=== PATIENT | female | born 1935 | race Caucasian/White ===

== ENCOUNTER 2019-10-22 14:16 | Outpatient (CLI) | payer MEDICARE ==
--- NOTE | 2019-10-22 15:00 | ULT ---
Exam: Bilateral renal ultrasound HISTORY: Renal cyst COMPARISON: 12/13/2010 FINDINGS: Right kidney: Normal cortical echotexture. No hydronephrosis. Right kidney measurements: 5.3 x 3.6 x 8.6 cm. Left kidney: Normal cortical echotexture. No hydronephrosis Left kidney measurements 9.2 x 5.1 x 3.9 cm. Urinary bladder: Normal mucosa. Prevoid volume 218 mL IMPRESSION: No hydronephrosis.
== END 2019-10-22 14:17 | disposition home or self-care (01) ==
LOC: BICULT 14:16
PROVIDERS: ATTEND Urology
DX: N28.1 Cyst of kidney, acquired (principal)
CPT/HCPCS: 76770

== ENCOUNTER 2021-01-11 05:09 | Inpatient (IN) | payer MEDICARE ==
[2021-01-11 05:40] LABS: #Basophils 0.1 thou/uL (0.0-0.2); #Eosinphils 0.2 thou/uL (0.0-0.7); #Lymphocytes 2.5 thou/uL (1.20-3.40); #Monocytes 0.6 thou/uL (0.11-0.59); #Neutrophils 4.3 thou/uL (1.40-6.50); %Basophils 1.1 % (0.0-1.0); %Eosinophils 2.2 % (0.0-10.0); %Lymphocytes 33.2 % (21.0-51.0); %Monocytes 7.7 % (0.0-10.0); %Neutrophils 55.7 % (42.0-75.0); Hemoglobin 15.1 g/dL (12.0-16.0); Mean Corpuscular HGB CONC 31.5 g/dL (32.0-36.0); Mean Corpuscular Hemoglobin 29.8 pg (27.0-31.0); Mean Corpuscular Volume 94.6 fL (78.0-98.0); Mean Platelet Volume 9.4 fL (7.4-10.4); Platelet Count 144 thou/uL (130-400); RBC Distribution Width 12.6 % (11.5-14.5); Red Blood Cell (RBC) Count 5.08 mill/uL (4.20-5.40); White Blood Cell (WBC) Count 7.6 thou/uL (4.8-10.8)
[2021-01-11 05:51] LABS: ALT (SGPT) 11 U/L (8-55); AST (SGOT) 16 U/L (5-34); Albumin 3.7 g/dL (3.4-4.8); Alkaline Phosphatase 42 U/L (40-110); Anion Gap 11 mmol/L (10-20); BUN (Urea Nitrogen) 14 mg/dL (9.8-20.1); Bilirubin, Total 0.9 mg/dL (0.2-1.2); Calc. Creatinine Clearance 0 mL/min (70-130); Calcium 8.9 mg/dL (7.8-10.44); Carbon Dioxide 28 mmol/L (23-31); Chloride 104 mmol/L (98-107); Globulin 2.3 g/dL (2.4-3.5); Glucose 113 mg/dL (83-110); Potassium 4.1 mmol/L (3.5-5.1); Sodium 139 mmol/L (136-145)
[2021-01-11 06:14] LABS: CKMB 1.6 ng/mL (0-6.6)
--- NOTE | 2021-01-11 08:18 | RAD ---
CHEST 1 VIEW: HISTORY: Chest tightness and pressure. COMPARISON: 01/28/2018. FINDINGS: There is cardiomegaly. There is atherosclerosis of the aorta. Surrounding wires are identified. No pleural effusion. Chronic changes of the lung parenchyma. No mass or consolidation. No pneumothor ax or acute osseous abnormalities. IMPRESSION: 1. Cardiomegaly without evidence of congestive heart failure. 2. Atherosclerosis. POS: PPP
[2021-01-11] MEDS ORDERED: Morphine 2 MG/ML VIAL SLOW IVP PRN (09:00)
[2021-01-11] MEDS ORDERED: Nitroglycerin 0.4 MG TAB (25 Tab Bottle) SL PRN (09:00)
[2021-01-11 09:14] LABS: Troponin I 0.029 ng/mL (< 0.028)
[2021-01-11 10:14] LABS: SARS-CoV-2 PCR by NAA Not Detected (NotDetected)
[2021-01-11] MEDS ORDERED: Aspirin Chewable 81 MG TAB PO SCH (11:00)
[2021-01-11] MEDS ORDERED: Acetaminophen 500 MG TAB ONE (11:14)
--- NOTE | 2021-01-11 12:10 | PDOC.HHP ---
Hospitalist HPI chest pain History of Present Illness: Patient is 85-year-old female with PMH of HTN, HLD, CAD (s/p CABG), A fib, mild age-related memory loss who presents to the ED with substernal chest pain that started last night. Pain is nonradiating, and associated with shortness of breath. Sounds like the pain resolved with medication. Allergies/Adverse Reactions: Allergy/AdvReac Type Severity Reaction Status Date / Time quetiapine [From Seroquel] Allergy Verified 01/11/21 15:09 Sulfa (Sulfonamide Allergy Verified 01/11/21 15:09 Antibiotics) Home Medications: Medication Instructions Recorded Confirmed Type Acetaminophen [Tylenol] 650 mg PO Q6H PRN 01/11/21 01/11/21 History Apixaban [Eliquis] 5 mg PO BID 01/11/21 01/11/21 History Aspirin 81 mg PO DAILY 01/11/21 01/11/21 History Digoxin [Lanoxin] 250 mcg PO DAILY 01/11/21 01/11/21 History Diltiazem HCl [Cardizem] 30 mg PO TID 01/11/21 01/11/21 History Donepezil HCl [Aricept] 5 mg PO HS 01/11/21 01/11/21 History Nebivolol HCl [Bystolic] 10 mg PO DAILY 01/11/21 01/11/21 History Pantoprazole [Protonix] 40 mg PO DAILY 01/11/21 01/11/21 History Simvastatin 20 mg PO HS 01/11/21 01/11/21 History Past History: PMHx: HTN, HLD, CAD (s/p CABG), A fib, mild age-related memory loss PSHx: CABG FHx: Both parents had history of CAD Social: She denies smoking, drug or alcohol use. Hospitalist HPI ROS Constitutional: denies: fever, chills Eyes: denies: vision change ENT: denies: throat pain Respiratory: reports: shortness of breath Cardiovascular: reports: chest pain, palpitations Gastrointestinal: denies: nausea, vomiting Genitourinary: denies: dysuria Other: Negative for dizziness Hospitalist Exam Vitals: Weight Weight 110 lb 0.171 oz General Appearance: NAD, awake alert Eye: PERRL ENT: moist mucosa Neck: supple, no JVD Heart: no murmur, irregular Heart - other findings: Bradycardic Respiratory: CTAB Gastrointestinal: soft, non-tender, non-distended Extremities: no edema Skin: normal turgor Neurological: normal sensation to touch, no weakness Musculoskeletal: normal strength Psychiatric: A&O x 3 Hospitalist Results Result Diagrams: 01/11/21 05:29 01/11/21 05:29 Lab results: Laboratory Last Values WBC 7.6 thou/uL (4.8-10.8) 01/11/21 05:29 RBC 5.08 mill/uL (4.20-5.40) 01/11/21 05:29 Hgb 15.1 g/dL (12.0-16.0) 01/11/21 05:29 Hct 48.1 % (36.0-47.0) H 01/11/21 05:29 MCV 94.6 fL (78.0-98.0) 01/11/21 05:29 MCH 29.8 pg (27.0-31.0) 01/11/21 05:29 MCHC 31.5 g/dL (32.0-36.0) L 01/11/21 05:29 RDW 12.6 % (11.5-14.5) 01/11/21 05:29 Plt Count 144 thou/uL (130-400) 01/11/21 05:29 MPV 9.4 fL (7.4-10.4) 01/11/21 05:29 Neutrophils % 55.7 % (42.0-75.0) 01/11/21 05:29 Lymphocytes % 33.2 % (21.0-51.0) 01/11/21 05:29 Monocytes % 7.7 % (0.0-10.0) 01/11/21 05:29 Eosinophils % 2.2 % (0.0-10.0) 01/11/21 05:29 Basophils % 1.1 % (0.0-1.0) H 01/11/21 05:29 Neutrophils # 4.3 thou/uL (1.40-6.50) 01/11/21 05:29 Lymphocytes # 2.5 thou/uL (1.20-3.40) 01/11/21 05:29 Monocytes # 0.6 thou/uL (0.11-0.59) H 01/11/21 05:29 Eosinophils # 0.2 thou/uL (0.0-0.7) 01/11/21 05:29 Basophils # 0.1 thou/uL (0.0-0.2) 01/11/21 05:29 Sodium 139 mmol/L (136-145) 01/11/21 05:29 Potassium 4.1 mmol/L (3.5-5.1) 01/11/21 05:29 Chloride 104 mmol/L (98-107) 01/11/21 05:29 Carbon Dioxide 28 mmol/L (23-31) 01/11/21 05:29 Anion Gap 11 mmol/L (10-20) 01/11/21 05:29 BUN 14 mg/dL (9.8-20.1) 01/11/21 05:29 Creatinine 0.84 mg/dL (0.6-1.1) 01/11/21 05:29 Estimated GFR (MDRD) 64 01/11/21 05:29 Glucose 113 mg/dL (83-110) H 01/11/21 05:29 Calcium 8.9 mg/dL (7.8-10.44) 01/11/21 05:29 Total Bilirubin 0.9 mg/dL (0.2-1.2) 01/11/21 05:29 AST 16 U/L (5-34) 01/11/21 05:29 ALT 11 U/L (8-55) 01/11/21 05:29 Alkaline Phosphatase 42 U/L (40-110) 01/11/21 05:29 CK-MB (CK-2) 1.6 ng/mL (0-6.6) 01/11/21 05:29 Troponin I 0.029 ng/mL (< 0.028) H 01/11/21 08:34 Serum Total Protein 6.0 g/dL (5.8-8.1) 01/11/21 05:29 Albumin 3.7 g/dL (3.4-4.8) 01/11/21 05:29 Globulin 2.3 g/dL (2.4-3.5) L 01/11/21 05:29 Albumin/Globulin Ratio 1.6 g/dL (1.2-2.2) 01/11/21 05:29 SARS CoV-2 Rapid Source Nasopharyngeal Swab 01/11/21 05:41 SARS-CoV-2 RNA (ALIX) Not Detected (NotDetected) 01/11/21 05:41 Chest x-ray Status: image reviewed by vt Hospitalist H&P A/P (1) Chest pain Code(s): R07.9 - CHEST PAIN, UNSPECIFIED Status: Acute Assessment and Plan: Patient reported substernal chest pain. Troponin mildly elevated initially, now trended down. EKG showed A fib with bradycardia. Tele showed several episodes of pauses lasting upto 2.8 seconds PLan: -Trend troponin -Cardiology consulted, patient will have stress test tomorrow -digoxin and bystolic held (2) A-fib Code(s): I48.91 - UNSPECIFIED ATRIAL FIBRILLATION Status: Chronic Assessment and Plan: Patient noted to have A fib with bradycardia. Tele showed multiple pauses. 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 I talked to Dr. Reyes who recommended holding digoxin and Donepezil, she will need outpatient monitoring and she can f/u with her production support consultant Dr. Avila. Plan: -digoxin and Donepezil held
[2021-01-11 12:53] LABS: Troponin I 0.027 ng/mL (< 0.028)
[2021-01-11 12:54] LABS: Digoxin 0.96 ng/mL (0.8-2.0)
--- NOTE | 2021-01-11 19:39 | CON ---
DATE OF CONSULTATION: 01/11/2021 REASON FOR CONSULTATION: Chest heaviness, atrial fibrillation with tachycardia and bradycardia. PRIMARY OFFICE WORKER: Dr. Cristobal Avila. HISTORY OF PRESENT ILLNESS: Ms. Jacobo is a very pleasant 85-year-old woman. She has history of coronary artery bypass grafting about 8 years ago. She was sent to [place] to get that done. She recently has developed atrial fibrillation. She was initially placed on Bystolic, but apparently that did not adequately control the heart rate. Ultimately, she was placed on Bystolic, digoxin, and diltiazem, and was brought to the hospital with heaviness in her chest. In talking to her, it is hard to tell if that heavy feeling is a slow heart rate, beating heart, or angina. She has had multiple 2.5 to 2.8 second pauses here. The patient has a history of atrial fibrillation with a rapid rate in the past. MEDICATIONS: At home, she was taking; 1. Bystolic 10 mg a day. 2. Digoxin 0.25 mg a day. 3. Apixaban 5 mg twice a day. 4. Diltiazem also. REVIEW OF SYSTEMS: CONSTITUTIONAL: No significant weight gain or loss. VISION: No changes. HEARING: No changes. PULMONARY: No cough or wheezing. GASTROINTESTINAL: No nausea, vomiting, or diarrhea. SKIN: No rashes. NEUROLOGIC: No unilateral weakness or numbness. PSYCHIATRIC: No unusual depression or anxiety. PHYSICAL EXAMINATION: GENERAL: Pleasant patient, resting comfortably, in no distress. VITAL SIGNS: Blood pressure 136/70, pulse 60. HEENT: Eyes, sclerae nonicteric. Mouth, mucous membranes moist. NECK: Supple. No lymphadenopathy. LUNGS: Clear. CARDIAC: Irregularly irregular. No murmur, rub, or gallop. ABDOMEN: Soft, nontender. EXTREMITIES: No clubbing or cyanosis. There is no edema. PERTINENT LABORATORY DATA: Troponin indeterminate, peak 0.032. Creatinine is 0.84. EKG reveals atrial fibrillation with intermittent pauses. ASSESSMENT: 1. Atrial fibrillation with tachycardia-bradycardia, 2.8 second pauses. 2. Previous history of tachycardia. 3. Chest heaviness, unclear whether that is related to the slow heart rate versus angina. 4. Previous bypass. PLAN: 1. Stress testing. 2. Hold all AV mariela blocking medicines today. 3. Probably resume Bystolic tomorrow. 4. Proceed to stress test tomorrow. 5. Depending on the findings, may be able to go home with a monitor to follow up with Dr. Avila. Probably, at some point, will most likely need pacemaker insertion for tachycardia-bradycardia syndrome. Job ID: [id number]
[2021-01-12] MEDS ORDERED: Pantoprazole 40 MG VIAL IVP SCH (01:30)
[2021-01-12 01:48] LABS: #Basophils 0.1 thou/uL (0.0-0.2); #Eosinphils 0.2 thou/uL (0.0-0.7); #Lymphocytes 2.3 thou/uL (1.20-3.40); #Monocytes 0.6 thou/uL (0.11-0.59); #Neutrophils 3.7 thou/uL (1.40-6.50); %Basophils 1.4 % (0.0-1.0); %Eosinophils 2.5 % (0.0-10.0); %Lymphocytes 33.3 % (21.0-51.0); %Monocytes 8.7 % (0.0-10.0); %Neutrophils 54.2 % (42.0-75.0); Hemoglobin 14.6 g/dL (12.0-16.0); Mean Corpuscular HGB CONC 33.1 g/dL (32.0-36.0); Mean Corpuscular Hemoglobin 31.8 pg (27.0-31.0); Mean Platelet Volume 9.6 fL (7.4-10.4); Platelet Count 131 thou/uL (130-400); RBC Distribution Width 12.8 % (11.5-14.5); Red Blood Cell (RBC) Count 4.58 mill/uL (4.20-5.40); White Blood Cell (WBC) Count 6.8 thou/uL (4.8-10.8)
[2021-01-12 02:13] LABS: Troponin I 0.014 ng/mL (< 0.028)
[2021-01-12 02:25] LABS: Anion Gap 12 mmol/L (10-20); BUN (Urea Nitrogen) 13 mg/dL (9.8-20.1); Calc. Creatinine Clearance 43 mL/min (70-130); Calcium 8.5 mg/dL (7.8-10.44); Carbon Dioxide 27 mmol/L (23-31); Chloride 105 mmol/L (98-107); Cholesterol 112 mg/dl (< 200 Desired); Glucose 96 mg/dL (83-110); HDL Cholesterol 37 mg/dL (>60 Neg Risk); LDL Cholesterol, Calculated 60 mg/dL; Potassium 4.4 mmol/L (3.5-5.1); Sodium 140 mmol/L (136-145); Triglycerides 77 mg/dL (Less than 150)
--- NOTE | 2021-01-12 07:04 | CON ---
DATE OF CONSULTATION: 01/11/2021 Dictated by Anika Bell, nurse practitioner, as a scribe for Dr. Dawit Reyes. SAFE AND VAULT INSTALLER: Dr. Cristobal Avila. PRIMARY CARE PROVIDER: Dr. Morillo. REASON FOR CONSULTATION: Atrial fibrillation and pauses. HISTORY OF PRESENT ILLNESS: Ms. Jacobo is an 84-year-old woman with a history of atrial fibrillation, managed by Dr. Avila. She was diagnosed reportedly around June of 2020 and was hospitalized in September 2020 with atrial fibrillation with RVR. At that time, her rate control medications were adjusted. She was on oral anticoagulation with Eliquis. She was discharged home. She recently experienced some nausea, dizziness, and chest discomfort suddenly upon waking at around 4:00 a.m. and pressed her Life Alert button. She came to the hospital and was found in atrial fibrillation with ventricular rate of 67 beats per minute and a single premature ventricular complex on EKG. Her daughter is at bedside with her, who largely acts as a historian as Ms. Jacobo has been diagnosed with dementia and is a poor historian. She was recently started on donepezil, which she thinks is partially responsible to her recent symptoms. PAST MEDICAL HISTORY: 1. Persistent atrial fibrillation, diagnosed approximately June 2020. 2. Coronary artery disease with a prior [place] , coronary artery bypass grafting. 3. Depression. 4. GERD. 5. Hyperlipidemia. 6. Hypertension. 7. Osteoarthritis. 8. Premature ventricular contraction. 9. Dementia. 10. Anxiety. 11. Carotid artery stenosis, status post endarterectomy. REVIEW OF SYSTEMS: Positive for recent nausea, dizziness, and chest pain prompting ER evaluation. Currently, she feels well and 12-point review of systems is unremarkable. ALLERGIES: AUGMENTIN, CEFDINIR, CODEINE, , SEROQUEL, SULFA, AND CIPROFLOXACIN. HOME MEDICATIONS: 1. Eliquis 5 mg b.i.d. 2. Aspirin 81 mg daily. 3. Diltiazem 30 mg p.o. t.i.d. 4. Digoxin 250 mcg daily (confirmed with daughter and pharmacy). 5. Albuterol inhaler as needed every 6 hours. 6. Lexapro 20 mg daily. 7. Metrogel b.i.d. for rosacea. 8. Nebivolol 10 mg daily. 9. Protonix 40 mg daily. 10. Simvastatin 20 mg daily. FAMILY HISTORY: Positive for coronary artery disease with her parents and her sister. SOCIAL HISTORY: Strong family support. She still lives alone, but with the occasional aid of a caregiver, mostly related to sundowning dementia. Denies alcohol, tobacco, or illicit drug use. PHYSICAL EXAMINATION: VITAL SIGNS: Temperature 98.0, pulse 65, blood pressure 136/70, respirations 18, and oxygen is 95% on room air. GENERAL: The patient is alert. She is oriented to person and place, mildly oriented to situation, but a very poor historian. She is resting comfortably in bed, in no apparent distress at the time of the exam. HEENT: She is normocephalic and atraumatic. Her sclerae are anicteric. Oral mucosa is moist and pink. NECK: Supple without jugular venous distention. There is no lymphadenopathy. Her trachea is midline. CARDIAC: Heart rate is irregularly irregular. PMI is nondisplaced. LUNGS: Clear to auscultation bilaterally without wheezes, crackles, or rales. ABDOMEN: Benign with positive bowel sounds throughout. EXTREMITIES: Warm and dry to touch. Well perfused without clubbing, cyanosis, or edema. NEUROLOGIC: Grossly intact and nonfocal. Gait was not assessed. DATABASE: Telemetry and EKG show atrial fibrillation with controlled ventricular rate. QRS is 86 milliseconds. Occasional pauses up to 3 seconds are seen in atrial fibrillation with R-to-R variability. Echocardiogram from September 2020 shows LVEF 40% to 45% at [facility]. Myocardial perfusion study in July 2020 showed no evidence of ischemic trigger per Cardiology note in September 2020. IMPRESSION: 1. Atrial fibrillation with controlled and sometimes slow ventricular rate. 2. Chest discomfort. 3. Hypertension. 4. Dementia. PLAN AND RECOMMENDATIONS: I had a long discussion today with Ms. Jacobo and her daughter regarding atrial fibrillation and possible treatment options. So far, rate control strategy has been the goal with her and her toe lining closer. This has been fairly successful. She recently had donepezil added to her medication profile and there is a possibility that this may be contributing to further slowing of bradycardia as a side effect of this medication. There is also discrepancy between her digoxin dose from her pharmacy and on the records from her primary care doctor with a visit last week. For now, we would recommend stopping digoxin and allowing for heart rates to recover some. There has been no severe bradycardia and no sustained pauses. The longest was up to 3 seconds, although while in atrial fibrillation. 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 Thank you for allowing me to participate in the care of this patient. We will continue to follow. Job ID: [id number]
[2021-01-12] MEDS ORDERED: FLU VACC QS2020-21(65YR UP)/PF 240 MCG/0.7 ML SYRINGE IM ONE (09:00)
--- NOTE | 2021-01-12 12:46 | NM ---
NM Cardiac Stress W EF WF History: Chest pain Comparison: None. Findings: Stress and rest performed after the intravenous administration of 30.5 and 9 mCi technetium 99m sestamibi, respectively. No scar or ischemia. Moderate septal hypokinesia. Calculated ejection fraction is 44%. Impression: 1. No evidence for scar or ischemia. 2. Moderate septal hypokinesia. 3. Calculated ejection fraction of 44%.
[2021-01-12] MEDS ORDERED: Nebivolol HCl 5 MG TAB PO SCH (13:00)
--- NOTE | 2021-01-12 13:05 | PDOC.HOSPP ---
- Subjective Encounter Date: 01/12/21 Encounter Time: 11:45 Subjective: Patient seen this morning she denied any chest pain. Planning to get the stress test. cardiology and EP note reviewed. - Objective Vital Signs & Weight: Vital Signs (12 hours) Temp Pulse Resp BP Pulse Ox 01/12/21 12:59 97.8 F 95 16 138/67 95 01/12/21 12:57 95 01/12/21 09:00 98.0 F 85 23 H 160/63 H 93 L 01/12/21 05:20 97.8 F 128 H 95 Weight Admit Weight 110 lb 0.16 oz Weight 110 lb 0.16 oz I&O: 01/11/21 01/12/21 01/13/21 06:59 06:59 06:59 Intake Total 980 Balance 980 Result Diagrams: 01/12/21 01:30 01/12/21 01:30 Hospitalist Exam Vitals: Vital Signs (12 hours) Temp Pulse Resp BP Pulse Ox 01/12/21 12:59 97.8 F 95 16 138/67 95 01/12/21 12:57 95 01/12/21 09:00 98.0 F 85 23 H 160/63 H 93 L 01/12/21 05:20 97.8 F 128 H 95 Weight Admit Weight 110 lb 0.16 oz Weight 110 lb 0.16 oz General Appearance: NAD, awake alert Eye: PERRL ENT: normocephalic atraumatic Neck: supple Heart: RRR, normal peripheral pulses Respiratory: CTAB, normal chest expansion Gastrointestinal: soft, normal bowel sounds Extremities: no cyanosis, 1+ LE edema Neurological: cranial nerve grossly intact, no focal deficits Psychiatric: A&O x 3 Hosp A/P - Plan Chest pain Code(s): R07.9 - CHEST PAIN, UNSPECIFIED Status: Acute Assessment and Plan: Patient reported substernal chest pain. Troponin mildly elevated initially, now trended down. EKG showed A fib with bradycardia. -stress test -digoxin and bystolic held -donepezil, which was started recently, could have caused bradycardia and that has been on hold -Echo showed EF of 45% atrial fibrillation severely dilated left atrium no mitral valve stenosis mild aortic insufficiency moderately elevated pulmonary artery pressure. A fib with bradycardia. Tele showed multiple pauses tachy-ministerio syndrome. Longest pause was up to 3 seconds. -holding digoxin and Donepezil, s -Probably need pacemaker long-term History of CABG -Hold beta-eric -after the stress test we can restart her back on [facility] --- f/u with her pulmonary physician Dr. Avila.
[2021-01-12] MEDS ORDERED: Regadenoson 0.4 MG/5 ML SYRINGE ONE (13:57)
--- NOTE | 2021-01-12 15:59 | PDOC.EP ---
- Subjective Date: 01/12/21 Time: 08:00 Interval History: pt sleeping. Had a difficult night with confusion and some agitation. dtr remains bedside - Objective Allergies/Adverse Reactions: Allergies Allergy/AdvReac Type Severity Reaction Status Date / Time amoxicillin [From Augmentin] Allergy Verified 01/12/21 11:59 cefdinir Allergy Verified 01/12/21 11:59 ciprofloxacin Allergy Verified 01/12/21 11:59 clavulanic acid Allergy Verified 01/12/21 11:59 [From Augmentin] codeine Allergy Verified 01/12/21 11:59 fentanyl Allergy Verified 01/12/21 11:59 quetiapine [From Seroquel] Allergy Verified 01/11/21 15:09 Sulfa (Sulfonamide Allergy Verified 01/11/21 15:09 Antibiotics) Current Medications Acetaminophen (Acetaminophen 325 Mg Tab) 650 mg PO Q4H PRN PRN Reason: Headache/Fever/Mild Pain (1-3) Apixaban (Apixaban 5 Mg Tab) 5 mg PO BID [facility] Aspirin (Aspirin Chewable 81 Mg Tab) 81 mg PO DAILY [facility] Morphine Sulfate (Morphine 2 Mg/Ml Vial) 2 mg SLOW IVP Q5MIN PRN PRN Reason: Chest Pain Nebivolol (Nebivolol Hcl 5 Mg Tab) 10 mg PO DAILY [facility] Nitroglycerin (Nitroglycerin 0.4 Mg Tab (25 Tab Bottle)) 0.4 mg SL Q5MIN PRN PRN Reason: Chest Pain Ondansetron HCl (Ondansetron Pf 4 Mg/2 Ml Vial) 4 mg IVP Q6H PRN PRN Reason: Nausea/Vomiting Pantoprazole Sodium (Pantoprazole 40 Mg Tab) 40 mg PO DAILY [facility] Vital Signs & Weight: Vital Signs Temp Pulse Resp BP Pulse Ox 01/12/21 12:59 97.8 F 95 16 138/67 95 01/12/21 12:57 95 01/12/21 09:00 98.0 F 85 23 H 160/63 H 93 L 01/12/21 05:20 97.8 F 128 H 95 Admit Weight 110 lb 0.16 oz Weight 135 lb I/O: I/O 01/11/21 01/12/21 01/13/21 06:59 06:59 06:59 Intake Total 980 Balance 980 - Quality Measures Condition: Atrial Fibrillation/Flutter (hx or current) CV meds: Eliquis: Yes - Physical Exam General: negative: alert & oriented x3, affect appropriate Neck: supple neck, midline trachea, no JVD/HJR Cardiology: regular rate, irregularly irregular Lungs: clear to auscultation Abdomen: unremarkable - Labs Result Diagrams: 01/12/21 01:30 01/12/21 01:30 - EKG Interpretation EKG Method: Telemetry EKG shows: Atrial fibrillation - Assessment/Plan Assessment/Plan: 1. Persistent atrial fibrillation, diagnosed approximately June 2020. 2. Coronary artery disease with a prior [place] and coronary artery bypass grafting. 3. Depression. 4. GERD. 5. Hyperlipidemia. 6. Hypertension. 7. Osteoarthritis. 8. Premature ventricular contraction. 9. Dementia. 10. Anxiety. 11. Carotid artery stenosis, status post endarterectomy. AF with no more bradycardia. HR now in 90s. Occasional pauses seen which will occur with AFib. Resuming BB and CCB today to prevent RVR from reccurring. Would refrain from digoxin. May need pacemaker for tachybrady syndrome in the future which can likely be discussed with Dr Avila as OP unless heart rates are difficult to stabilize as IP.
[2021-01-12] MEDS: Apixaban 5 MG TAB PO SCH (20:47)
[2021-01-12] MEDS ORDERED: Loratadine 10 MG TAB PO PRN (23:09)
[2021-01-13 05:24] LABS: #Eosinphils 0.3 thou/uL (0.0-0.7); #Lymphocytes 1.5 thou/uL (1.20-3.40); #Monocytes 0.5 thou/uL (0.11-0.59); #Neutrophils 4.7 thou/uL (1.40-6.50); %Basophils 0.6 % (0.0-1.0); %Eosinophils 3.6 % (0.0-10.0); %Lymphocytes 21.9 % (21.0-51.0); %Monocytes 7.6 % (0.0-10.0); %Neutrophils 66.4 % (42.0-75.0); Hemoglobin 14.9 g/dL (12.0-16.0); Mean Corpuscular Hemoglobin 33.7 pg (27.0-31.0); Mean Corpuscular Volume 96.3 fL (78.0-98.0); Mean Platelet Volume 9.4 fL (7.4-10.4); Platelet Count 121 thou/uL (130-400); RBC Distribution Width 12.5 % (11.5-14.5); Red Blood Cell (RBC) Count 4.42 mill/uL (4.20-5.40); White Blood Cell (WBC) Count 7.1 thou/uL (4.8-10.8)
[2021-01-13 05:29] LABS: Anion Gap 12 mmol/L (10-20); BUN (Urea Nitrogen) 13 mg/dL (9.8-20.1); Calc. Creatinine Clearance 52 mL/min (70-130); Calcium 8.5 mg/dL (7.8-10.44); Carbon Dioxide 26 mmol/L (23-31); Chloride 106 mmol/L (98-107); Glucose 86 mg/dL (83-110); Potassium 4.2 mmol/L (3.5-5.1); Sodium 140 mmol/L (136-145)
[2021-01-13] MEDS: Acetaminophen 325 MG TAB PO PRN (06:16)
[2021-01-13] MEDS: Aspirin Chewable 81 MG TAB PO SCH (08:46)
[2021-01-13] MEDS ORDERED: Non-Formulary Item 1 EACH (Nebivolol Hcl [Bystolic] 10 MG Tab) PO SCH (09:00)
[2021-01-13] MEDS ORDERED: Nebivolol HCl 5 MG TAB PO SCH ×3 (09:00→21:00)
[2021-01-13] MEDS ORDERED: hydrALAZINE 20 MG/ML VIAL SLOW IVP PRN (09:53)
[2021-01-13] MEDS: Apixaban 5 MG TAB PO SCH ×2 (12:40→20:15)
--- NOTE | 2021-01-13 13:58 | PDOC.EP ---
- Subjective Date: 01/13/21 Time: 13:57 - Review of Systems Constitutional: denies: chills, fever, malaise, sweats, weakness, other Respiratory: denies: cough, dry, hemoptysis, pleuritic pain, shortness of breath, SOB with excertion, sputum, wheezing, other Cardiology: reports: palpitations. denies: chest pain, edema, heart racing, light headedness, orthopnea, paroxysmal noc. dyspnea, passing out, pleuritic pain, pressure, swelling, other Gastrointestinal: denies: abdominal pain, constipation, diarrhea, hematochezia, melena, nausea, vomitting, other Musculoskeletal: denies: unstable gait, falls, neck pain, shoulder pain, arm pain, hand pain, leg pain, foot pain, other Neurological: denies: headache, vision changes, other - Objective Allergies/Adverse Reactions: Allergies Allergy/AdvReac Type Severity Reaction Status Date / Time amoxicillin [From Augmentin] Allergy Verified 01/12/21 11:59 cefdinir Allergy Verified 01/12/21 11:59 ciprofloxacin Allergy Verified 01/12/21 11:59 clavulanic acid Allergy Verified 01/12/21 11:59 [From Augmentin] codeine Allergy Verified 01/12/21 11:59 fentanyl Allergy Verified 01/12/21 11:59 quetiapine [From Seroquel] Allergy Verified 01/11/21 15:09 Sulfa (Sulfonamide Allergy Verified 01/11/21 15:09 Antibiotics) Current Medications Acetaminophen (Acetaminophen 325 Mg Tab) 650 mg PO Q4H PRN PRN Reason: Headache/Fever/Mild Pain (1-3) Last Admin: 01/13/21 06:16 Dose: 650 mg Documented by: Apixaban (Apixaban 5 Mg Tab) 5 mg PO BID [facility] Last Admin: 01/12/21 20:47 Dose: 5 mg Documented by: Aspirin (Aspirin Chewable 81 Mg Tab) 81 mg PO DAILY [facility] Last Admin: 01/13/21 08:46 Dose: 81 mg Documented by: Hydralazine HCl (Hydralazine 20 Mg/Ml Vial) 10 mg SLOW IVP Q4H PRN PRN Reason: SBP > 150 Loratadine (Loratadine 10 Mg Tab) 10 mg PO DAILYPRN PRN PRN Reason: Allergies Last Admin: 01/13/21 00:04 Dose: 10 mg Documented by: Morphine Sulfate (Morphine 2 Mg/Ml Vial) 2 mg SLOW IVP Q5MIN PRN PRN Reason: Chest Pain Nebivolol (Nebivolol Hcl 5 Mg Tab) 5 mg PO DAILY [facility] Nitroglycerin (Nitroglycerin 0.4 Mg Tab (25 Tab Bottle)) 0.4 mg SL Q5MIN PRN PRN Reason: Chest Pain Ondansetron HCl (Ondansetron Pf 4 Mg/2 Ml Vial) 4 mg IVP Q6H PRN PRN Reason: Nausea/Vomiting Pantoprazole Sodium (Pantoprazole 40 Mg Tab) 40 mg PO DAILY [facility] Last Admin: 01/13/21 08:46 Dose: 40 mg Documented by: Sodium Chloride (Flush - Normal Saline 10 Ml Syringe) 10 ml IVF Q12HR FELI Sodium Chloride (Flush - Normal Saline 10 Ml Syringe) 10 ml IVF PRN PRN PRN Reason: Saline Flush Vital Signs & Weight: Vital Signs Temp Pulse Resp BP BP Pulse Ox 01/13/21 12:50 97.1 F L 76 16 144/70 H 93 L 01/13/21 08:41 98.0 F 65 16 160/86 H 95 01/13/21 04:50 98.3 F 82 20 134/85 96 Admit Weight 110 lb 0.16 oz Weight 135 lb I/O: I/O 01/12/21 01/13/21 01/14/21 06:59 06:59 06:59 Intake Total 980 1560 Balance 980 1560 - Quality Measures Condition: Atrial Fibrillation/Flutter (hx or current) CV meds: Eliquis: Yes - Physical Exam General: alert & oriented x3, appears well HEENT: normocephaly Neck: no JVD/HJR, no thromegaly Cardiology: no murmur, irregularly irregular Lungs: normal breath sounds, no wheezes, no rales Neurology: grossly intact Abdomen: unremarkable, soft, non-tender Extremities: warm Skin: groin sites stable Musculoskeletal: no pain - Labs Result Diagrams: 01/13/21 04:46 01/13/21 04:46 - EKG Interpretation EKG Method: Telemetry EKG shows: Atrial fibrillation - Assessment/Plan Assessment/Plan: 1. Persistent atrial fibrillation, diagnosed approximately June 2020. 2. Coronary artery disease with a prior [place] and coronary artery bypass grafting. 2a. Nuclear stress test negative for ischemia 01/11/21 EF 44% 3. Depression. 4. GERD. 5. Hyperlipidemia. 6. Hypertension. 7. Osteoarthritis. 8. Premature ventricular contraction. 9. Dementia. 10. Anxiety. 11. Carotid artery stenosis, status post endarterectomy. AF with no more bradycardia. HR now in 90s. Occasional pauses seen which will occur with AFib. Resuming BB and CCB today to prevent RVR from recurring. Would refrain from digoxin. May need pacemaker for tachybrady syndrome in the future which can likely be discussed with Dr Avila as OP unless heart rates are difficult to stabilize as IP. 01/13/21 Still in afib with adequate VR control. Onn occasion shortly dips in 40s but not sustain. Digoxin stopped. Will lower nebivolol dose. Would sign out.
[2021-01-13] MEDS: Ondansetron PF 4 MG/2 ML Vial IVP PRN ×2 (14:02→20:10)
--- NOTE | 2021-01-13 14:02 | PDOC.HOSPP ---
- Subjective Encounter Date: 01/13/21 Encounter Time: 11:55 Subjective: Patient seen this morning. Over early this morning around 840 she was bradycardic with a pulse in the 40s. Later on her pulse improved to 70s and 80s range. She was symptomatic when she was bradycardic per nursing staff. Daughter at bedside. She is currently not on any beta-blockers as per field project manager's instruction, we are going to wait until tomorrow to start her back on Bystolic.. - Objective Vital Signs & Weight: Vital Signs (12 hours) Temp Pulse Resp BP BP Pulse Ox 01/13/21 12:50 97.1 F L 76 16 144/70 H 93 L 01/13/21 08:41 98.0 F 65 16 160/86 H 95 01/13/21 04:50 98.3 F 82 20 134/85 96 Weight Admit Weight 110 lb 0.16 oz Weight 135 lb I&O: 01/12/21 01/13/21 01/14/21 06:59 06:59 06:59 Intake Total 980 1560 Balance 980 1560 Result Diagrams: 01/13/21 04:46 01/13/21 04:46 Hospitalist ROS - Medication Medications: Active Medications Generic Name Dose Route Start Last Admin Trade Name Freq PRN Reason Stop Dose Admin Acetaminophen 650 mg 01/11/21 09:00 01/13/21 06:16 Acetaminophen 325 Mg Tab PO 650 mg Q4H PRN Administration Headache/Fever/Mild Pain (1-3) Apixaban 5 mg 01/12/21 21:00 01/12/21 20:47 Apixaban 5 Mg Tab PO 5 mg BID FELI Administration Aspirin 81 mg 01/13/21 09:00 01/13/21 08:46 Aspirin Chewable 81 Mg Tab PO 81 mg DAILY FELI Administration Loratadine 10 mg 01/12/21 23:09 01/13/21 00:04 Loratadine 10 Mg Tab PO 10 mg DAILYPRN PRN Administration Allergies Pantoprazole Sodium 40 mg 01/13/21 09:00 01/13/21 08:46 Pantoprazole 40 Mg Tab PO 40 mg DAILY FELI Administration Hospitalist Exam Vitals: Vital Signs (12 hours) Temp Pulse Resp BP BP Pulse Ox 01/13/21 12:50 97.1 F L 76 16 144/70 H 93 L 01/13/21 08:41 98.0 F 65 16 160/86 H 95 01/13/21 04:50 98.3 F 82 20 134/85 96 Weight Admit Weight 110 lb 0.16 oz Weight 135 lb General Appearance: NAD, awake alert Eye: PERRL ENT: normocephalic atraumatic Neck: supple Heart: RRR, normal peripheral pulses Respiratory: CTAB, normal chest expansion Gastrointestinal: soft Neurological: cranial nerve grossly intact, no focal deficits Psychiatric: A&O x 3 Hosp A/P - Plan Chest pain Code(s): R07.9 - CHEST PAIN, UNSPECIFIED Status: Acute Assessment and Plan: Patient reported substernal chest pain. Troponin mildly elevated initially, now trended down. EKG showed A fib with bradycardia. -stress test -digoxin and bystolic held -donepezil, which was started recently, could have caused bradycardia and that has been on hold -Echo showed EF of 45% atrial fibrillation severely dilated left atrium no mitral valve stenosis mild aortic insufficiency moderately elevated pulmonary artery pressure. A fib with bradycardia. Tele showed multiple pauses tachy-ministerio syndrome. Longest pause was up to 3 seconds. -holding digoxin and Donepezil, s -Probably need pacemaker long-term History of CABG -Hold beta-eric -after the stress test we can restart her back on Bystolic --- f/u with her field project manager Dr. Avila. [employer] [employer] this morning however later her pulse is improved to 80s. Her blood pressure is also on the over systolic 140 range[address] I talked to Dr. Reyes -Will start her on a low-dose Norvasc to optimize her blood pressure -Daughter on very low-dose Bystolic and see how she improved over next 24 to 48hours in terms of optimizing her heart rate.
--- NOTE | 2021-01-13 14:19 | PDOC.BPN ---
- Brief Progress Note Discussed with Dr. Chanell Reyes. Prefers that we start her on Bystolic tomorrow at 5 mg daily dose and no blockers added today. we can start her on Norvasc today to optimize her blood pressure. If her pulse relatively stable and above 60 and asymptomatic, then we can discharge her with 5 mg Bystolic starting tomorrow.
[2021-01-13] MEDS: Amlodipine 5 MG TAB PO SCH (20:14)
[2021-01-14] MEDS ORDERED: methylPREDNISolone Sod Succ/PF 125 MG/2 ML VIAL IVP SCH (06:00)
[2021-01-14] MEDS ORDERED: diphenhydrAMINE 50 MG/ML VIAL IVP SCH (06:00)
[2021-01-14] MEDS ORDERED: Famotidine/PF 20 mg/2ml Vial SLOW IVP SCH (06:00)
[2021-01-14] MEDS ORDERED: diphenhydrAMINE 50 MG/ML VIAL ONE (06:04)
[2021-01-14] MEDS: Acetaminophen 325 MG TAB PO PRN (07:09)
[2021-01-14] MEDS: Ondansetron PF 4 MG/2 ML Vial IVP PRN (07:10)
[2021-01-14] MEDS ORDERED: Nebivolol HCl 5 MG TAB PO SCH (09:00)
[2021-01-14] MEDS: Apixaban 5 MG TAB PO SCH ×2 (09:37→20:56)
[2021-01-14] MEDS: Nebivolol HCl 5 MG TAB PO SCH (09:37)
[2021-01-14] MEDS: Amlodipine 5 MG TAB PO SCH ×2 (09:37→20:56)
[2021-01-14] MEDS: Aspirin Chewable 81 MG TAB PO SCH (09:37)
[2021-01-14] MEDS ORDERED: Nebivolol HCl 5 MG TAB PO ONE (14:09)
--- NOTE | 2021-01-14 16:50 | PDOC.HOSPP ---
- Subjective Encounter Date: 01/14/21 Encounter Time: 08:45 Subjective: is sitting in chair, no sob or chest pain or palp feels cold got a dose of iv hydralazine and developed itching/allergic reaction Vs flushing for which benadryl was given which led to sedation. - Objective Vital Signs & Weight: Vital Signs (12 hours) Temp Pulse Resp BP BP Pulse Ox 01/14/21 10:35 98.1 F 01/14/21 08:45 94.4 F L 01/14/21 08:15 70 12 122/67 95 01/14/21 05:49 65 134/60 01/14/21 05:27 90 192/86 H 01/14/21 05:24 97.6 F 90 16 192/86 H 93 L Weight Admit Weight 110 lb 0.16 oz Weight 135 lb I&O: 01/13/21 01/14/21 01/15/21 06:59 06:59 06:59 Intake Total 1560 120 237 Balance 1560 120 237 Result Diagrams: 01/13/21 04:46 01/13/21 04:46 Hospitalist ROS - Medication Medications: Active Medications Generic Name Dose Route Start Last Admin Trade Name Freq PRN Reason Stop Dose Admin Acetaminophen 650 mg 01/11/21 09:00 01/14/21 07:09 Acetaminophen 325 Mg Tab PO 650 mg Q4H PRN Administration Headache/Fever/Mild Pain (1-3) Amlodipine Besylate 5 mg 01/13/21 21:00 01/14/21 09:37 Amlodipine 5 Mg Tab PO 5 mg BID FELI Administration Apixaban 5 mg 01/12/21 21:00 01/14/21 09:37 Apixaban 5 Mg Tab PO 5 mg BID FELI Administration Aspirin 81 mg 01/13/21 09:00 01/14/21 09:37 Aspirin Chewable 81 Mg Tab PO 81 mg DAILY FELI Administration Loratadine 10 mg 01/12/21 23:09 01/13/21 00:04 Loratadine 10 Mg Tab PO 10 mg DAILYPRN PRN Administration Allergies Nebivolol 5 mg 01/14/21 09:00 01/14/21 09:37 Nebivolol Hcl 5 Mg Tab PO 5 mg DAILY FELI Administration Ondansetron HCl 4 mg 01/11/21 09:00 01/14/21 07:10 Ondansetron Pf 4 Mg/2 Ml Vial IVP 4 mg Q6H PRN Administration Nausea/Vomiting Pantoprazole Sodium 40 mg 01/13/21 09:00 01/14/21 09:37 Pantoprazole 40 Mg Tab PO 40 mg DAILY FELI Administration Sodium Chloride 10 ml 01/13/21 21:00 01/14/21 09:37 Flush - Normal Saline 10 Ml Syringe IVF 10 ml Q12HR FELI Administration Hospitalist Exam Vitals: Vital Signs (12 hours) Temp Pulse Resp BP BP Pulse Ox 01/14/21 10:35 98.1 F 01/14/21 08:45 94.4 F L 01/14/21 08:15 70 12 122/67 95 01/14/21 05:49 65 134/60 01/14/21 05:27 90 192/86 H 01/14/21 05:24 97.6 F 90 16 192/86 H 93 L Weight Admit Weight 110 lb 0.16 oz Weight 135 lb Eye: PERRL, anicteric sclera ENT: no oropharyngeal lesions, dry oral mucosa Neck: supple, no JVD Heart: RRR, no murmur Respiratory: no wheezes, no rales Gastrointestinal: soft, non-tender, non-distended, normal bowel sounds Extremities: no cyanosis, no edema Neurological: cranial nerve grossly intact, no focal deficits Hosp A/P (1) Bradycardia Code(s): R00.1 - BRADYCARDIA, UNSPECIFIED Status: Resolved (2) Benign labile hypertension Code(s): I10 - ESSENTIAL (PRIMARY) HYPERTENSION Status: Acute (3) Dementia Code(s): F03.90 - UNSPECIFIED DEMENTIA WITHOUT BEHAVIORAL DISTURBANCE Status: Chronic Qualifiers: Dementia type: Alzheimer's Alzheimer's disease onset: early-onset Dementia behavioral disturbance: without behavioral disturbance Qualified Code(s): G30.0 - Alzheimer's disease with early onset; F02.80 - Dementia in other diseases classified elsewhere without behavioral disturbance (4) UTI (urinary tract infection) Status: Acute Qualifiers: Urinary tract infection type: acute cystitis Hematuria presence: without hematuria Qualified Code(s): N30.00 - Acute cystitis without hematuria (5) CAD (coronary artery disease) Code(s): I25.10 - ATHSCL HEART DISEASE OF [place] CORONARY ARTERY W/O ANG PCTRS Status: Chronic Qualifiers: Coronary Disease-Associated Artery/Lesion type: bypass graft [place] vs. transplanted heart: [place] heart Associated angina: without angina Qualified Code(s): I25.810 - Atherosclerosis of coronary artery bypass graft(s) without angina pectoris (6) Dyslipidemia Code(s): E78.5 - HYPERLIPIDEMIA, UNSPECIFIED Status: Chronic (7) Acute metabolic encephalopathy Code(s): G93.41 - METABOLIC ENCEPHALOPATHY Status: Acute (8) Chest pain Code(s): R07.9 - CHEST PAIN, UNSPECIFIED Status: Resolved Qualifiers: Chest pain type: unspecified Qualified Code(s): R07.9 - Chest pain, unspecified (9) A-fib Code(s): I48.91 - UNSPECIFIED ATRIAL FIBRILLATION Status: Chronic Qualifiers: Atrial fibrillation type: longstanding persistent Qualified Code(s): I48.11 - Longstanding persistent atrial fibrillation - Plan is on eliquis, asp, bystolic 5mg daily and protonix, will add low dose cardizem bid and continue donepezil and observe. Seroquel QHS low dose. stress test was -ve ef is 45% dig, norvasc are held she f/u with needs placement to Alzheimers unit, she is forgetful and is at risk of medication noncompliance among other things hemostable no prn meds for htn please d/w son and gave full updates, family are in favor of [facility]. CM consultation.
[2021-01-14] MEDS ORDERED: Lorazepam 2 MG/ML VIAL SLOW IVP SCH ×2 (16:55→23:45)
[2021-01-14] MEDS: Donepezil HCl 5 MG TAB PO SCH (20:56)
[2021-01-15] MEDS: Nebivolol HCl 5 MG TAB PO SCH (09:45)
[2021-01-15] MEDS: Aspirin Chewable 81 MG TAB PO SCH (09:45)
[2021-01-15] MEDS: Apixaban 5 MG TAB PO SCH (09:45)
[2021-01-15] MEDS: Amlodipine 5 MG TAB PO SCH ×2 (09:45→21:13)
--- NOTE | 2021-01-15 12:54 | PDOC.HOSPP ---
- Subjective Encounter Date: 01/15/21 Encounter Time: 09:15 Subjective: is confused this am, not in distress but not oriented says she does not feel good - Objective Vital Signs & Weight: Vital Signs (12 hours) Temp Pulse Pulse Resp BP BP Pulse Ox 01/15/21 11:45 97.6 F 116 H 18 136/75 94 L 01/15/21 09:45 112 H 01/15/21 09:44 74 135/67 01/15/21 07:30 98 F 112 H 18 148/82 H 100 Weight Admit Weight 110 lb 0.16 oz Weight 135 lb I&O: 01/14/21 01/15/21 01/16/21 06:59 06:59 06:59 Intake Total 120 477 Balance 120 477 Result Diagrams: 01/13/21 04:46 01/13/21 04:46 Hospitalist ROS - Medication Medications: Active Medications Generic Name Dose Route Start Last Admin Trade Name Freq PRN Reason Stop Dose Admin Acetaminophen 650 mg 01/11/21 09:00 01/14/21 07:09 Acetaminophen 325 Mg Tab PO 650 mg Q4H PRN Administration Headache/Fever/Mild Pain (1-3) Amlodipine Besylate 5 mg 01/13/21 21:00 01/15/21 09:45 Amlodipine 5 Mg Tab PO 5 mg BID FELI Administration Apixaban 5 mg 01/12/21 21:00 01/15/21 09:45 Apixaban 5 Mg Tab PO 5 mg BID FELI Administration Aspirin 81 mg 01/13/21 09:00 01/15/21 09:45 Aspirin Chewable 81 Mg Tab PO 81 mg DAILY FELI Administration Diltiazem HCl 30 mg 01/14/21 21:00 01/15/21 09:45 Diltiazem Hcl 30 Mg Tablet PO 30 mg BID FELI Administration Donepezil HCl 5 mg 01/14/21 21:00 01/14/21 20:56 Donepezil Hcl 5 Mg Tab PO 5 mg HS FELI Administration Loratadine 10 mg 01/12/21 23:09 01/13/21 00:04 Loratadine 10 Mg Tab PO 10 mg DAILYPRN PRN Administration Allergies Nebivolol 5 mg 01/14/21 09:00 01/15/21 09:45 Nebivolol Hcl 5 Mg Tab PO 5 mg DAILY FELI Administration Ondansetron HCl 4 mg 01/11/21 09:00 01/14/21 07:10 Ondansetron Pf 4 Mg/2 Ml Vial IVP 4 mg Q6H PRN Administration Nausea/Vomiting Pantoprazole Sodium 40 mg 01/13/21 09:00 01/15/21 09:45 Pantoprazole 40 Mg Tab PO 40 mg DAILY FELI Administration Sodium Chloride 10 ml 01/13/21 21:00 01/15/21 09:45 Flush - Normal Saline 10 Ml Syringe IVF 10 ml Q12HR FELI Administration Hospitalist Exam Vitals: Vital Signs (12 hours) Temp Pulse Pulse Resp BP BP Pulse Ox 01/15/21 11:45 97.6 F 116 H 18 136/75 94 L 01/15/21 09:45 112 H 01/15/21 09:44 74 135/67 01/15/21 07:30 98 F 112 H 18 148/82 H 100 Weight Admit Weight 110 lb 0.16 oz Weight 135 lb General Appearance: awake alert Eye: PERRL, anicteric sclera ENT: no oropharyngeal lesions, moist mucosa Neck: supple, no JVD Heart: RRR, no murmur Respiratory: no wheezes, no rales Gastrointestinal: soft, non-tender, non-distended, normal bowel sounds Extremities: no cyanosis, no edema Neurological: cranial nerve grossly intact, no focal deficits Hosp A/P (1) Bradycardia Code(s): R00.1 - BRADYCARDIA, UNSPECIFIED Status: Resolved (2) Benign labile hypertension Code(s): I10 - ESSENTIAL (PRIMARY) HYPERTENSION Status: Acute (3) Dementia Code(s): F03.90 - UNSPECIFIED DEMENTIA WITHOUT BEHAVIORAL DISTURBANCE Status: Chronic Qualifiers: Dementia type: Alzheimer's Alzheimer's disease onset: early-onset Dementia behavioral disturbance: with behavioral disturbance Qualified Code(s): G30.0 - Alzheimer's disease with early onset; F02.81 - Dementia in other diseases classified elsewhere with behavioral disturbance (4) UTI (urinary tract infection) Status: Acute Qualifiers: Urinary tract infection type: acute cystitis Hematuria presence: without hematuria Qualified Code(s): N30.00 - Acute cystitis without hematuria (5) CAD (coronary artery disease) Code(s): I25.10 - ATHSCL HEART DISEASE OF [place] CORONARY ARTERY W/O ANG PCTRS Status: Chronic Qualifiers: Coronary Disease-Associated Artery/Lesion type: bypass graft [place] vs. transplanted heart: [place] heart Associated angina: without angina Qualified Code(s): I25.810 - Atherosclerosis of coronary artery bypass graft(s) without angina pectoris (6) Dyslipidemia Code(s): E78.5 - HYPERLIPIDEMIA, UNSPECIFIED Status: Chronic (7) Acute metabolic encephalopathy Code(s): G93.41 - METABOLIC ENCEPHALOPATHY Status: Acute (8) Chest pain Code(s): R07.9 - CHEST PAIN, UNSPECIFIED Status: Resolved Qualifiers: Chest pain type: unspecified Qualified Code(s): R07.9 - Chest pain, unspecified (9) A-fib Code(s): I48.91 - UNSPECIFIED ATRIAL FIBRILLATION Status: Chronic Qualifiers: Atrial fibrillation type: longstanding persistent Qualified Code(s): I48.11 - Longstanding persistent atrial fibrillation - Plan is on eliquis, asp, bystolic 5mg daily and protonix, low dose cardizem bid and continue donepezil and observe. has hallucinations with underlying dementia, will add low dose risperdal tonigh t, d/w son about it. stress test was -ve ef is 45% dig, norvasc are held she f/u with needs placement to Alzheimers unit, she is forgetful, has hallucinations today and is at risk of medication noncompliance among other things hemostable no prn meds for htn please d/w son and gave full updates on 01/14/21, 01/15/21, family are in favor of [facility]. CM consultation.
[2021-01-15 13:41] LABS: #Basophils 0.1 thou/uL (0.0-0.2); #Eosinphils 0.1 thou/uL (0.0-0.7); %Basophils 0.5 % (0.0-1.0); %Eosinophils 0.7 % (0.0-10.0); %Lymphocytes 18.2 % (21.0-51.0); %Monocytes 8.5 % (0.0-10.0); %Neutrophils 72.2 % (42.0-75.0); Hemoglobin 14.7 g/dL (12.0-16.0); Mean Corpuscular Hemoglobin 31.8 pg (27.0-31.0); Mean Corpuscular Volume 96.6 fL (78.0-98.0); Mean Platelet Volume 9.6 fL (7.4-10.4); Platelet Count 136 thou/uL (130-400); RBC Distribution Width 12.8 % (11.5-14.5); Red Blood Cell (RBC) Count 4.63 mill/uL (4.20-5.40); White Blood Cell (WBC) Count 11.1 thou/uL (4.8-10.8)
[2021-01-15 13:51] LABS: Anion Gap 11 mmol/L (10-20); BUN (Urea Nitrogen) 18 mg/dL (9.8-20.1); Calc. Creatinine Clearance 41 mL/min (70-130); Calcium 8.8 mg/dL (7.8-10.44); Carbon Dioxide 30 mmol/L (23-31); Chloride 105 mmol/L (98-107); Glucose 106 mg/dL (83-110); Potassium 4.1 mmol/L (3.5-5.1); Sodium 142 mmol/L (136-145)
[2021-01-15] MEDS: risperiDONE 1 MG TAB PO SCH (21:13)
[2021-01-15] MEDS: Donepezil HCl 5 MG TAB PO SCH (21:13)
[2021-01-15] MEDS: Ondansetron PF 4 MG/2 ML Vial IVP PRN (21:28)
[2021-01-16] MEDS ORDERED: Aspirin Chewable 81 MG TAB ONE (08:25)
[2021-01-16] MEDS ORDERED: Amlodipine 5 MG TAB ONE (08:25)
[2021-01-16] MEDS ORDERED: Nebivolol HCl 5 MG TAB ONE (08:25)
[2021-01-16] MEDS: Acetaminophen 325 MG TAB PO PRN (15:35)
--- NOTE | 2021-01-16 16:33 | PDOC.HOSPP ---
- Subjective Encounter Date: 01/16/21 Subjective: No acute events overnight. Patient more with it today and is A&O x3. Patient admits to periodic sundowning, but feels she can perform well on her own with her home provider. She states she has a provider 24 hours daily that was started recently. - Objective Vital Signs & Weight: Vital Signs (12 hours) Temp Pulse Pulse Resp BP BP Pulse Ox 01/16/21 15:37 98.1 F 87 16 149/64 H 98 01/16/21 13:30 84 129/66 Weight Admit Weight 110 lb 0.16 oz Weight 135 lb I&O: 01/15/21 01/16/21 01/17/21 06:59 06:59 06:59 Intake Total 477 750 Balance 477 750 Result Diagrams: 01/15/21 13:09 01/15/21 13:09 Hospitalist ROS - Review of Systems All other systems reviewed; all pertinent +/- noted in HPI/Subj - Medication Medications: Active Medications Generic Name Dose Route Start Last Admin Trade Name Freq PRN Reason Stop Dose Admin Acetaminophen 650 mg 01/11/21 09:00 01/14/21 07:09 Acetaminophen 325 Mg Tab PO 650 mg Q4H PRN Administration Headache/Fever/Mild Pain (1-3) Amlodipine Besylate 5 mg 01/13/21 21:00 01/15/21 21:13 Amlodipine 5 Mg Tab PO Not Given BID FELI Aspirin 81 mg 01/13/21 09:00 01/15/21 09:45 Aspirin Chewable 81 Mg Tab PO 81 mg DAILY FELI Administration Diltiazem HCl 30 mg 01/14/21 21:00 01/15/21 21:13 Diltiazem Hcl 30 Mg Tablet PO Not Given BID FELI Donepezil HCl 5 mg 01/14/21 21:00 01/15/21 21:13 Donepezil Hcl 5 Mg Tab PO Not Given HS FELI Loratadine 10 mg 01/12/21 23:09 01/13/21 00:04 Loratadine 10 Mg Tab PO 10 mg DAILYPRN PRN Administration Allergies Nebivolol 5 mg 01/14/21 09:00 01/15/21 09:45 Nebivolol Hcl 5 Mg Tab PO 5 mg DAILY FELI Administration Ondansetron HCl 4 mg 01/11/21 09:00 01/15/21 21:28 Ondansetron Pf 4 Mg/2 Ml Vial IVP 4 mg Q6H PRN Administration Nausea/Vomiting Pantoprazole Sodium 40 mg 01/13/21 09:00 01/15/21 09:45 Pantoprazole 40 Mg Tab PO 40 mg DAILY FELI Administration Risperidone 1 mg 01/15/21 21:00 01/15/21 21:13 Risperidone 1 Mg Tab PO Not Given HS FELI Sodium Chloride 10 ml 01/13/21 21:00 01/15/21 21:13 Flush - Normal Saline 10 Ml Syringe IVF Not Given Q12HR [facility] Hospitalist Exam Vitals: Vital Signs (12 hours) Temp Pulse Pulse Resp BP BP Pulse Ox 01/16/21 15:37 98.1 F 87 16 149/64 H 98 01/16/21 13:30 84 129/66 Weight Admit Weight 110 lb 0.16 oz Weight 135 lb General Appearance: awake alert Eye: PERRL, anicteric sclera ENT: normocephalic atraumatic Neck: no JVD Heart: RRR, no gallops, no rubs Respiratory: CTAB, no wheezes Gastrointestinal: soft, non-tender, non-distended Extremities: no cyanosis, no clubbing, no edema Skin: normal turgor, no rashes Neurological: no new deficit Musculoskeletal: generalized weakness Psychiatric: A&O x 3 Hosp A/P (1) Benign labile hypertension Code(s): I10 - ESSENTIAL (PRIMARY) HYPERTENSION Status: Acute (2) A-fib Code(s): I48.91 - UNSPECIFIED ATRIAL FIBRILLATION Status: Chronic Qualifiers: Atrial fibrillation type: longstanding persistent Qualified Code(s): I48.11 - Longstanding persistent atrial fibrillation (3) CAD (coronary artery disease) Code(s): I25.10 - ATHSCL HEART DISEASE OF [place] CORONARY ARTERY W/O ANG PCTRS Status: Chronic Qualifiers: Coronary Disease-Associated Artery/Lesion type: bypass graft [place] vs. transplanted heart: [place] heart Associated angina: without angina Qualified Code(s): I25.810 - Atherosclerosis of coronary artery bypass graft(s) without angina pectoris (4) Dementia Code(s): F03.90 - UNSPECIFIED DEMENTIA WITHOUT BEHAVIORAL DISTURBANCE Status: Chronic Qualifiers: Dementia type: Alzheimer's Alzheimer's disease onset: early-onset Dementia behavioral disturbance: with behavioral disturbance Qualified Code(s): G30.0 - Alzheimer's disease with early onset; F02.81 - Dementia in other diseases classified elsewhere with behavioral disturbance (5) Dyslipidemia Code(s): E78.5 - HYPERLIPIDEMIA, UNSPECIFIED Status: Chronic (6) Bradycardia Code(s): R00.1 - BRADYCARDIA, UNSPECIFIED Status: Resolved - Plan is on eliquis, asp, bystolic 5mg daily and protonix, low dose cardizem bid and continue donepezil and observe. has hallucinations with underlying dementia, will add low dose risperdal tonight, d/w son about it. stress test was -ve ef is 45% dig, norvasc are held she f/u with needs placement to Alzheimers unit, she is forgetful, has hallucinations intermittently and is at risk of medication noncompliance among other things hemostable no prn meds for htn please d/w son and gave full updates on 01/14/21, 01/15/21, family are in favor of [facility]. CM consultation.
[2021-01-16] MEDS: Nebivolol HCl 5 MG TAB PO SCH (17:21)
[2021-01-16] MEDS: Amlodipine 5 MG TAB PO SCH ×2 (17:22→21:10)
[2021-01-16] MEDS: Aspirin Chewable 81 MG TAB PO SCH (17:22)
[2021-01-16] MEDS: Donepezil HCl 5 MG TAB PO SCH (21:11)
[2021-01-16] MEDS: risperiDONE 1 MG TAB PO SCH (21:11)
[2021-01-17] MEDS ORDERED: Melatonin 3 MG TAB ONE (03:43)
[2021-01-17 08:09] LABS: Anion Gap 12 mmol/L (10-20); BUN (Urea Nitrogen) 17 mg/dL (9.8-20.1); Calc. Creatinine Clearance 48 mL/min (70-130); Calcium 8.6 mg/dL (7.8-10.44); Carbon Dioxide 26 mmol/L (23-31); Chloride 105 mmol/L (98-107); Glucose 106 mg/dL (83-110); Potassium 4.3 mmol/L (3.5-5.1); Sodium 139 mmol/L (136-145)
[2021-01-17] MEDS: Aspirin Chewable 81 MG TAB PO SCH (08:50)
[2021-01-17] MEDS: Amlodipine 5 MG TAB PO SCH ×2 (08:50→20:35)
[2021-01-17] MEDS: Nebivolol HCl 5 MG TAB PO SCH (08:50)
[2021-01-17] MEDS: Polyethylene Glycol 3350 17 GM Packet PO PRN (12:34)
--- NOTE | 2021-01-17 15:52 | PDOC.HOSPP ---
- Subjective Encounter Date: 01/17/21 Subjective: No acute events overnight. - Objective Vital Signs & Weight: Vital Signs (12 hours) Temp Pulse Pulse Pulse Resp BP BP 01/17/21 12:36 97.8 F 55 L 15 01/17/21 10:45 87 79 132/76 141/65 H 01/17/21 08:48 01/17/21 08:44 97.5 F L 90 20 BP BP Pulse Ox Pulse Ox Pulse Ox 01/17/21 12:36 112/55 L 97 01/17/21 10:45 96 95 01/17/21 08:48 95 01/17/21 08:44 141/65 H 95 Weight Admit Weight 110 lb 0.16 oz Weight 135 lb I&O: 01/16/21 01/17/21 01/18/21 06:59 06:59 06:59 Intake Total 750 1070 Balance 750 1070 Result Diagrams: 01/15/21 13:09 01/17/21 07:25 Hospitalist ROS - Review of Systems All other systems reviewed; all pertinent +/- noted in HPI/Subj - Medication Medications: Active Medications Generic Name Dose Route Start Last Admin Trade Name Freq PRN Reason Stop Dose Admin Acetaminophen 650 mg 01/11/21 09:00 01/14/21 07:09 Acetaminophen 325 Mg Tab PO 650 mg Q4H PRN Administration Headache/Fever/Mild Pain (1-3) Amlodipine Besylate 5 mg 01/13/21 21:00 01/17/21 08:50 Amlodipine 5 Mg Tab PO 5 mg BID FELI Administration Aspirin 81 mg 01/13/21 09:00 01/17/21 08:50 Aspirin Chewable 81 Mg Tab PO 81 mg DAILY FELI Administration Diltiazem HCl 30 mg 01/14/21 21:00 01/17/21 08:49 Diltiazem Hcl 30 Mg Tablet PO 30 mg BID FELI Administration Donepezil HCl 5 mg 01/14/21 21:00 01/16/21 21:11 Donepezil Hcl 5 Mg Tab PO 5 mg HS FELI Administration Loratadine 10 mg 01/12/21 23:09 01/13/21 00:04 Loratadine 10 Mg Tab PO 10 mg DAILYPRN PRN Administration Allergies Nebivolol 5 mg 01/14/21 09:00 01/17/21 08:50 Nebivolol Hcl 5 Mg Tab PO 5 mg DAILY FELI Administration Ondansetron HCl 4 mg 01/11/21 09:00 01/15/21 21:28 Ondansetron Pf 4 Mg/2 Ml Vial IVP 4 mg Q6H PRN Administration Nausea/Vomiting Pantoprazole Sodium 40 mg 01/13/21 09:00 01/17/21 08:50 Pantoprazole 40 Mg Tab PO 40 mg DAILY FELI Administration Polyethylene Glycol 17 gm 01/17/21 08:55 01/17/21 12:34 Polyethylene Glycol 3350 17 Gm Packet PO 17 gm DAILYPRN PRN Administration Constipation Risperidone 1 mg 01/15/21 21:00 01/16/21 21:11 Risperidone 1 Mg Tab PO 1 mg HS FELI Administration Sodium Chloride 10 ml 01/13/21 21:00 01/17/21 08:51 Flush - Normal Saline 10 Ml Syringe IVF 10 ml Q12HR FELI Administration Hospitalist Exam Vitals: Vital Signs (12 hours) Temp Pulse Pulse Pulse Resp BP BP 01/17/21 12:36 97.8 F 55 L 15 01/17/21 10:45 87 79 132/76 141/65 H 01/17/21 08:48 01/17/21 08:44 97.5 F L 90 20 BP BP Pulse Ox Pulse Ox Pulse Ox 01/17/21 12:36 112/55 L 97 01/17/21 10:45 96 95 01/17/21 08:48 95 01/17/21 08:44 141/65 H 95 Weight Admit Weight 110 lb 0.16 oz Weight 135 lb General Appearance: NAD, awake alert Eye: PERRL, anicteric sclera ENT: no oropharyngeal lesions Neck: supple, no JVD Heart: RRR, no gallops, no rubs, murmur present, II/IV Respiratory: CTAB, no ronchi Psychiatric: A&O x 3 Hosp A/P (1) Benign labile hypertension Code(s): I10 - ESSENTIAL (PRIMARY) HYPERTENSION Status: Acute (2) A-fib Code(s): I48.91 - UNSPECIFIED ATRIAL FIBRILLATION Status: Chronic Qualifiers: Atrial fibrillation type: longstanding persistent Qualified Code(s): I48.11 - Longstanding persistent atrial fibrillation (3) CAD (coronary artery disease) Code(s): I25.10 - ATHSCL HEART DISEASE OF [place] CORONARY ARTERY W/O ANG PCTRS Status: Chronic Qualifiers: Coronary Disease-Associated Artery/Lesion type: bypass graft [place] vs. transplanted heart: [place] heart Associated angina: without angina Qualified Code(s): I25.810 - Atherosclerosis of coronary artery bypass graft(s) without angina pectoris (4) Dementia Code(s): F03.90 - UNSPECIFIED DEMENTIA WITHOUT BEHAVIORAL DISTURBANCE Status: Chronic Qualifiers: Dementia type: Alzheimer's Alzheimer's disease onset: early-onset Dementia behavioral disturbance: with behavioral disturbance Qualified Code(s): G30.0 - Alzheimer's disease with early onset; F02.81 - Dementia in other diseases classified elsewhere with behavioral disturbance (5) Dyslipidemia Code(s): E78.5 - HYPERLIPIDEMIA, UNSPECIFIED Status: Chronic (6) Bradycardia Code(s): R00.1 - BRADYCARDIA, UNSPECIFIED Status: Resolved - Plan is on eliquis, asp, bystolic 5mg daily and protonix, low dose cardizem bid and continue donepezil and observe. has hallucinations with underlying dementia, will add low dose risperdal toncristóbal t, d/w son about it. stress test was -ve ef is 45% dig, norvasc are held she f/u with needs placement to Alzheimers unit, she is forgetful, has hallucinations intermittently and is at risk of medication noncompliance among other things hemostable no prn meds for htn please d/w son and family are in favor of [facility]. CM consultation for placement.
[2021-01-17] MEDS: Donepezil HCl 5 MG TAB PO SCH (20:35)
[2021-01-17] MEDS: risperiDONE 1 MG TAB PO SCH (20:36)
[2021-01-17] MEDS: Apixaban 5 MG TAB PO SCH (20:36)
[2021-01-18] MEDS ORDERED: Lorazepam 2 MG/ML VIAL SLOW IVP SCH (01:30)
[2021-01-18] MEDS: Aspirin Chewable 81 MG TAB PO SCH (08:31)
[2021-01-18] MEDS: Apixaban 5 MG TAB PO SCH ×2 (08:32→20:50)
[2021-01-18] MEDS: Amlodipine 5 MG TAB PO SCH ×2 (08:32→20:50)
[2021-01-18] MEDS: Nebivolol HCl 5 MG TAB PO SCH (08:32)
[2021-01-18] MEDS: Polyethylene Glycol 3350 17 GM Packet PO PRN (11:54)
[2021-01-18 12:06] LABS: #Eosinphils 0.1 thou/uL (0.0-0.7); #Lymphocytes 1.4 thou/uL (1.20-3.40); #Monocytes 0.6 thou/uL (0.11-0.59); #Neutrophils 5.1 thou/uL (1.40-6.50); %Basophils 0.5 % (0.0-1.0); %Eosinophils 0.8 % (0.0-10.0); %Lymphocytes 19.9 % (21.0-51.0); %Monocytes 7.7 % (0.0-10.0); Hemoglobin 14.7 g/dL (12.0-16.0); Mean Corpuscular Hemoglobin 31.5 pg (27.0-31.0); Mean Corpuscular Volume 95.3 fL (78.0-98.0); Mean Platelet Volume 9.1 fL (7.4-10.4); Platelet Count 143 thou/uL (130-400); RBC Distribution Width 12.7 % (11.5-14.5); Red Blood Cell (RBC) Count 4.68 mill/uL (4.20-5.40); White Blood Cell (WBC) Count 7.2 thou/uL (4.8-10.8)
[2021-01-18 12:28] LABS: Anion Gap 12 mmol/L (10-20); BUN (Urea Nitrogen) 19 mg/dL (9.8-20.1); Calc. Creatinine Clearance 46 mL/min (70-130); Calcium 8.5 mg/dL (7.8-10.44); Carbon Dioxide 25 mmol/L (23-31); Chloride 104 mmol/L (98-107); Glucose 142 mg/dL (83-110); Potassium 4.2 mmol/L (3.5-5.1); Sodium 137 mmol/L (136-145)
--- NOTE | 2021-01-18 14:05 | PDOC.HOSPP ---
- Subjective Encounter Date: 01/18/21 Encounter Time: 13:56 Subjective: No overnight events. Patient denies SOB, chest pain, or abdominal pain. Awaiting placement. Has not had a bowel movmenet in a few days, is passing gas. Chart and medications reviewed. - Objective Vital Signs & Weight: Vital Signs (12 hours) Temp Pulse Resp BP Pulse Ox 01/18/21 11:25 97.9 F 71 14 115/78 93 L 01/18/21 08:32 85 01/18/21 07:57 97.6 F 94 16 113/71 92 L 01/18/21 04:00 98.4 F 85 18 148/83 H 97 01/18/21 02:28 154 H 18 179/113 H Weight Admit Weight 110 lb 0.16 oz Weight 135 lb I&O: 01/17/21 01/18/21 01/19/21 06:59 06:59 06:59 Intake Total 1070 1080 Balance 1070 1080 Result Diagrams: 01/18/21 11:56 01/18/21 11:56 Hospitalist ROS - Review of Systems Constitutional: denies: fever, chills, sweats, weakness, malaise, other Eyes: denies: pain, vision change, conjunctivae inflammation, eyelid inflammation, redness, other ENT: denies: ear pain, ear discharge, nose pain, nose discharge, nose congestion, mouth pain, mouth swelling, throat pain, throat swelling, other Respiratory: denies: cough, dry, shortness of breath, hemoptysis, SOB with excertion, pleuritic pain, sputum, wheezing, other Cardiovascular: denies: chest pain, palpitations, orthopnea, paroxysmal noc. dyspnea, edema, light headedness, other Gastrointestinal: reports: constipation. denies: nausea, vomiting, abdominal pain, diarrhea, melena, hematochezia, other Genitourinary: denies: dysuria, frequency, incontinence, hematuria, retention, other Musculoskeletal: denies: neck pain, shoulder pain, arm pain, back pain, hand pain, leg pain, foot pain, other Skin: denies: rash, lesions, swetha, bruising, other Neurological: denies: weakness, numbness, incoordination, change in speech, confusion, seizures, other - Medication Medications: Active Medications Generic Name Dose Route Start Last Admin Trade Name Freq PRN Reason Stop Dose Admin Acetaminophen 650 mg 01/11/21 09:00 01/14/21 07:09 Acetaminophen 325 Mg Tab PO 650 mg Q4H PRN Administration Headache/Fever/Mild Pain (1-3) Amlodipine Besylate 5 mg 01/13/21 21:00 01/18/21 08:32 Amlodipine 5 Mg Tab PO 5 mg BID FELI Administration Apixaban 5 mg 01/17/21 21:00 01/18/21 08:32 Apixaban 5 Mg Tab PO 5 mg BID FELI Administration Aspirin 81 mg 01/13/21 09:00 01/18/21 08:31 Aspirin Chewable 81 Mg Tab PO 81 mg DAILY FELI Administration Diltiazem HCl 30 mg 01/14/21 21:00 01/18/21 08:32 Diltiazem Hcl 30 Mg Tablet PO 30 mg BID FELI Administration Donepezil HCl 5 mg 01/14/21 21:00 01/17/21 20:35 Donepezil Hcl 5 Mg Tab PO 5 mg HS FELI Administration Loratadine 10 mg 01/12/21 23:09 01/13/21 00:04 Loratadine 10 Mg Tab PO 10 mg DAILYPRN PRN Administration Allergies Nebivolol 5 mg 01/14/21 09:00 01/18/21 08:32 Nebivolol Hcl 5 Mg Tab PO 5 mg DAILY FELI Administration Ondansetron HCl 4 mg 01/11/21 09:00 01/15/21 21:28 Ondansetron Pf 4 Mg/2 Ml Vial IVP 4 mg Q6H PRN Administration Nausea/Vomiting Pantoprazole Sodium 40 mg 01/13/21 09:00 01/18/21 08:32 Pantoprazole 40 Mg Tab PO 40 mg DAILY FELI Administration Polyethylene Glycol 17 gm 01/17/21 08:55 01/18/21 11:54 Polyethylene Glycol 3350 17 Gm Packet PO 17 gm DAILYPRN PRN Administration Constipation Risperidone 1 mg 01/15/21 21:00 01/17/21 20:36 Risperidone 1 Mg Tab PO 1 mg HS FELI Administration Sodium Chloride 10 ml 01/13/21 21:00 01/18/21 08:32 Flush - Normal Saline 10 Ml Syringe IVF 10 ml Q12HR FELI Administration Hospitalist Exam Vitals: Vital Signs (12 hours) Temp Pulse Resp BP Pulse Ox 01/18/21 11:25 97.9 F 71 14 115/78 93 L 01/18/21 08:32 85 01/18/21 07:57 97.6 F 94 16 113/71 92 L 01/18/21 04:00 98.4 F 85 18 148/83 H 97 01/18/21 02:28 154 H 18 179/113 H Weight Admit Weight 110 lb 0.16 oz Weight 135 lb General Appearance: NAD, awake alert Eye: PERRL, anicteric sclera ENT: normocephalic atraumatic, no oropharyngeal lesions, moist mucosa Neck: supple, symmetric, no JVD, no thyromegaly, no lymphadenopathy, no carotid bruit Heart: RRR, no murmur, no gallops, no rubs, normal peripheral pulses Respiratory: CTAB, no wheezes, no rales, no ronchi, normal chest expansion, no tachypnea, normal percussion Gastrointestinal: soft, non-tender, non-distended, normal bowel sounds, no palpable masses, no hepatomegaly, no splenomegaly, no bruit Extremities: no cyanosis, no clubbing, no edema Skin: normal turgor, no lesions, no rashes Neurological: cranial nerve grossly intact, normal sensation to touch, no weakness, no focal deficits, no new deficit Musculoskeletal: normal tone, normal strength, no muscle wasting Psychiatric: normal affect, normal behavior, not oriented Hosp A/P - Plan (1) Benign labile hypertension Code(s): I10 - ESSENTIAL (PRIMARY) HYPERTENSION Status: Acute (2) A-fib Code(s): I48.91 - UNSPECIFIED ATRIAL FIBRILLATION Status: Chronic Qualifiers: Atrial fibrillation type: longstanding persistent Qualified Code(s): I48.11 - Longstanding persistent atrial fibrillation (3) CAD (coronary artery disease) Code(s): I25.10 - ATHSCL HEART DISEASE OF [place] CORONARY ARTERY W/O ANG PCTRS Status: Chronic Qualifiers: Coronary Disease-Associated Artery/Lesion type: bypass graft [place] vs. transplanted heart: [place] heart Associated angina: without angina Qualified Code(s): I25.810 - Atherosclerosis of coronary artery bypass graft(s) without a ngina pectoris (4) Dementia Code(s): F03.90 - UNSPECIFIED DEMENTIA WITHOUT BEHAVIORAL DISTURBANCE Status: Chronic Qualifiers: Dementia type: Alzheimer's Alzheimer's disease onset: early-onset Dementia behavioral disturbance: with behavioral disturbance Qualified Code(s): G30.0 - Alzheimer's disease with early onset; F02.81 - Dementia in other diseases classified elsewhere with behavioral disturbance (5) Dyslipidemia Code(s): E78.5 - HYPERLIPIDEMIA, UNSPECIFIED Status: Chronic (6) Bradycardia Code(s): R00.1 - BRADYCARDIA, UNSPECIFIED Status: Resolved - Plan 85F with hx of CAD s/p CABG, a-fib on Eliquis, Alzehimer's Dementia who presented for chest pain found to have negative stress test and EF of 45%, now awaiting placement to Alzheimer's unit. 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 Having intermittent hallucinations. Needs placement to Alzheimers unit. Coronary Artery Disease EF 45%, Stress test negative. Follows with Dr. Avila Awaiting placement to Alzehimers unit. Son is in favor of [facility]. CM consult placed. Discussed with attending physician, Dr. White.
--- NOTE | 2021-01-18 15:12 | EKG ---
Test Reason : Blood Pressure : / mmHG Vent. Rate : 068 BPM Atrial Rate : 416 BPM P-R Int : 000 ms QRS Dur : 090 ms QT Int : 390 ms P-R-T Axes : 000 061 054 degrees QTc Int : 414 ms Atrial fibrillation with premature ventricular or aberrantly conducted complexes Low voltage QRS Abnormal ECG When compared with ECG of 11-JAN-2021 05:19, (Unconfirmed) T wave inversion no longer evident in Inferior leads Nonspecific T wave abnormality no longer evident in Anterior leads Confirmed by MARYAM GREENE ([id number]) on 01/18/2021 3:11:56 PM Referred By: ISAI Confirmed By:MARYAM GREENE
[2021-01-18] MEDS: Melatonin 3 MG TAB PO PRN (20:50)
[2021-01-18] MEDS: Senokot S 8.6-50 MG TAB PO SCH (20:50)
[2021-01-18] MEDS: Donepezil HCl 5 MG TAB PO SCH (20:50)
[2021-01-18] MEDS: Acetaminophen 325 MG TAB PO PRN (20:50)
[2021-01-18] MEDS: risperiDONE 1 MG TAB PO SCH (20:50)
[2021-01-19] MEDS: Senokot S 8.6-50 MG TAB PO SCH ×2 (09:32→21:34)
[2021-01-19] MEDS: Amlodipine 5 MG TAB PO SCH ×2 (09:33→21:33)
[2021-01-19] MEDS: Nebivolol HCl 5 MG TAB PO SCH (09:33)
[2021-01-19] MEDS: Apixaban 5 MG TAB PO SCH ×2 (09:33→21:34)
[2021-01-19] MEDS: Aspirin Chewable 81 MG TAB PO SCH (09:33)
[2021-01-19] MEDS: Acetaminophen 325 MG TAB PO PRN (15:50)
--- NOTE | 2021-01-19 18:54 | PDOC.HOSPP ---
- Subjective Encounter Date: 01/19/21 Subjective: Patient feels generally well. Having some constipation. - Objective Vital Signs & Weight: Vital Signs (12 hours) Temp Pulse Pulse Pulse Resp BP BP 01/19/21 16:00 97.7 F 85 16 01/19/21 12:18 85 75 106/59 L 119/57 L 01/19/21 12:00 97.2 F L 80 16 01/19/21 09:33 71 01/19/21 08:00 97.6 F 100 17 BP Pulse Ox Pulse Ox Pulse Ox 01/19/21 16:00 124/58 L 95 01/19/21 12:18 96 94 L 01/19/21 12:00 120/62 94 L 01/19/21 09:33 01/19/21 08:00 119/56 L 94 L Weight Admit Weight 110 lb 0.16 oz Weight 132 lb I&O: 01/18/21 01/19/21 01/20/21 06:59 06:59 06:59 Intake Total 1080 520 480 Balance 1080 520 480 Result Diagrams: 01/18/21 11:56 01/18/21 11:56 Hospitalist ROS - Medication Medications: Active Medications Generic Name Dose Route Start Last Admin Trade Name Freq PRN Reason Stop Dose Admin Acetaminophen 650 mg 01/11/21 09:00 01/19/21 15:50 Acetaminophen 325 Mg Tab PO 650 mg Q4H PRN Administration Headache/Fever/Mild Pain (1-3) Amlodipine Besylate 5 mg 01/13/21 21:00 01/19/21 09:33 Amlodipine 5 Mg Tab PO 5 mg BID FELI Administration Apixaban 5 mg 01/17/21 21:00 01/19/21 09:33 Apixaban 5 Mg Tab PO 5 mg BID FELI Administration Aspirin 81 mg 01/13/21 09:00 01/19/21 09:33 Aspirin Chewable 81 Mg Tab PO 81 mg DAILY FELI Administration Diltiazem HCl 30 mg 01/14/21 21:00 01/19/21 09:33 Diltiazem Hcl 30 Mg Tablet PO 30 mg BID FELI Administration Donepezil HCl 5 mg 01/14/21 21:00 01/18/21 20:50 Donepezil Hcl 5 Mg Tab PO 5 mg HS FELI Administration Loratadine 10 mg 01/12/21 23:09 01/13/21 00:04 Loratadine 10 Mg Tab PO 10 mg DAILYPRN PRN Administration Allergies Melatonin 3 mg 01/17/21 03:28 01/18/21 20:50 Melatonin 3 Mg Tab PO 3 mg HSPRN PRN Administration Insomnia Nebivolol 5 mg 01/14/21 09:00 01/19/21 09:33 Nebivolol Hcl 5 Mg Tab PO 5 mg DAILY FELI Administration Ondansetron HCl 4 mg 01/11/21 09:00 01/15/21 21:28 Ondansetron Pf 4 Mg/2 Ml Vial IVP 4 mg Q6H PRN Administration Nausea/Vomiting Pantoprazole Sodium 40 mg 01/13/21 09:00 01/19/21 09:33 Pantoprazole 40 Mg Tab PO 40 mg DAILY FELI Administration Polyethylene Glycol 17 gm 01/17/21 08:55 01/18/21 11:54 Polyethylene Glycol 3350 17 Gm Packet PO 17 gm DAILYPRN PRN Administration Constipation Risperidone 1 mg 01/15/21 21:00 01/18/21 20:50 Risperidone 1 Mg Tab PO 1 mg HS FELI Administration Senna/Docusate Sodium 1 tab 01/18/21 21:00 01/19/21 09:32 Senokot S 8.6-50 Mg Tab PO 1 tab BID FELI Administration Sodium Chloride 10 ml 01/13/21 21:00 01/19/21 09:33 Flush - Normal Saline 10 Ml Syringe IVF 10 ml Q12HR FELI Administration Hospitalist Exam Vitals: Vital Signs (12 hours) Temp Pulse Pulse Pulse Resp BP BP 01/19/21 16:00 97.7 F 85 16 01/19/21 12:18 85 75 106/59 L 119/57 L 01/19/21 12:00 97.2 F L 80 16 01/19/21 09:33 71 01/19/21 08:00 97.6 F 100 17 BP Pulse Ox Pulse Ox Pulse Ox 01/19/21 16:00 124/58 L 95 01/19/21 12:18 96 94 L 01/19/21 12:00 120/62 94 L 01/19/21 09:33 01/19/21 08:00 119/56 L 94 L Weight Admit Weight 110 lb 0.16 oz Weight 132 lb General Appearance: NAD, awake alert General - other findings: Has a fairly normal conversation with me today. Heart: no murmur, no gallops, no rubs, irregular Respiratory: CTAB, no wheezes, no rales Gastrointestinal: soft, non-tender, non-distended, normal bowel sounds, no palpable masses, no hepatomegaly, no splenomegaly, no bruit Extremities: no cyanosis, no clubbing, no edema Neurological: no focal deficits Musculoskeletal: normal tone, normal strength Hosp A/P - Plan 85F with hx of CAD s/p CABG, a-fib on Eliquis, Alzehimer's Dementia who presented for chest pain found to have negative stress test and EF of 45%, now awaiting placement. 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 Continue Elquis, Bystolic, Cardizem Alzheimer's Dementia Continue donepezil, low-dose risperdal at night. Patient has some fluctuation of her cognition. 01/19/2021 Long conversation with the patient's son. He has been communicating with the [facility] staff. Working to get her to find the appropriate setting for her. It appears as though she will be appropriate for more than assisted living level of care. Patient has been accepted there and anticipate discharge to that facility on 01/20/2021. Coronary Artery Disease EF 45%, Stress test negative. Follows with Dr. Avila
[2021-01-19] MEDS: Donepezil HCl 5 MG TAB PO SCH (21:34)
[2021-01-19] MEDS: risperiDONE 1 MG TAB PO SCH (21:34)
[2021-01-19] MEDS: Melatonin 3 MG TAB PO PRN (22:01)
[2021-01-20] MEDS ORDERED: Simethicone Chewable 80 MG TAB PO SCH (01:00)
[2021-01-20] MEDS: Apixaban 5 MG TAB PO SCH (08:43)
[2021-01-20] MEDS: Aspirin Chewable 81 MG TAB PO SCH (08:43)
[2021-01-20] MEDS: Amlodipine 5 MG TAB PO SCH (08:43)
[2021-01-20] MEDS: Nebivolol HCl 5 MG TAB PO SCH (08:43)
[2021-01-20] MEDS: Senokot S 8.6-50 MG TAB PO SCH (08:43)
[2021-01-20] MEDS: Polyethylene Glycol 3350 17 GM Packet PO PRN (08:47)
[2021-01-20 10:11] LABS: Hemoglobin 14.5 g/dL (12.0-16.0); Platelet Count 135 thou/uL (130-400)
--- NOTE | 2021-01-20 10:21 | PRG ---
DATE OF SERVICE: 01/20/2021 SUBJECTIVE: Ms. Jacobo is awake and alert. She said she is going to today. OBJECTIVE: VITAL SIGNS: Her blood pressure 110/75, pulse 80 to 100, it is atrial fibrillation. LUNGS: Clear. CARDIAC: Irregularly irregular. ASSESSMENT: 1. Persistent atrial fibrillation. 2. Sundowning syndrome. 3. Hypertension. PLAN: 1. She is on aspirin. 2. Apixaban 5 mg twice a day. 3. Diltiazem was started at 30 mg twice a day. 4. She is on amlodipine, total of 10 mg a day. 5. Bystolic 5 mg a day. 6. She will need to follow up with Dr. Cristobal Avila as an outpatient for consideration for outpatient monitoring. If she has further bradycardia then pacemaker insertion would be appropriate. Ideally, the amount of time in the hospital should be minimized as the patient tends to have "sundowning" in unfamiliar surroundings. Job ID: [id number]
[2021-01-20 13:32] VITALS: BP 124/80; TEMP 97.2
--- NOTE | 2021-01-20 17:57 | PDOC.DS.DS ---
Provider Date of Admission: 01/14/21 12:55 Date of Discharge: 01/20/21 Admitting Provider: Hunter Benitez MD Consultations: Cardiology, Electrophysiology Primary Care Physician: BERTIN CARY Course Hospital Course: Patient is a 85-year-old female who had a history of coronary artery disease status post coronary artery bypass graft, atrial fibrillation and Alzheimer's type dementia. She presented to the emergency department with chest pain. She was noted to have no trend within her cardiac enzymes. Stress testing was negative with an ejection fraction of 45%. 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 Cardiology and electrophysiology were consulted. The patient's digoxin was subsequently held by electrophysiology. Subsequently her Bystolic dose was reduced. She appeared to have relatively stable rate control on Bystolic and Cardizem. During hospitalization the patient did have some increased confusion at times. She was given some Risperdal to take nightly. Subsequently she appeared to settle down to a fairly comfortable mental status. Through discussions with the patient's family it was felt she would best be served being placed in assisted living facility. Due to the extreme weather emergency case management was not readily available to assist however we were able to work with the [facility] to arrange the appropriate setting for the patient at discharge. Patient was ultimately accepted to transfer there on 01/20/2021. Patient is to follow-up with Dr. Cristobal Avila as an outpatient as he is her primary detective bureau chief. Should the patient experience further bradycardic concerns there would be a need to consider pacemaker placement. Resuscitation Status: 01/11/21 09:00 Resuscitation Status Routine Resuscitation Status: FULL: Full Resuscitation Discussed with: daughter Lab Results: 01/20/21 09:33 01/20/21 09:33 Vitals: Vital Signs (12 hours) Temp Pulse Resp BP Pulse Ox 01/20/21 12:00 97.2 F L 82 18 124/80 96 01/20/21 08:43 93 01/20/21 08:00 97.5 F L 84 17 110/75 95 Weight Admit Weight 110 lb 0.16 oz Weight 96 lb 11.2 oz Physical Exam: The patient was seen and examined on the day of discharge. General Appearance: NAD, awake alert Respiratory: CTAB, no wheezes, no rales, no ronchi, normal chest expansion Cardiovascular: RRR, no murmur, no gallops, no rubs Gastrointestinal: soft, non-tender, non-distended Extremities: no cyanosis, no clubbing, no edema Skin: normal turgor Musculoskeletal: normal tone, normal strength Problem (1) Chest pain Code(s): R07.9 - CHEST PAIN, UNSPECIFIED Status: Resolved Qualifiers: Chest pain type: unspecified Qualified Code(s): R07.9 - Chest pain, unspecified (2) Bradycardia Code(s): R00.1 - BRADYCARDIA, UNSPECIFIED Status: Resolved (3) A-fib Code(s): I48.91 - UNSPECIFIED ATRIAL FIBRILLATION Status: Chronic Qualifiers: Atrial fibrillation type: longstanding persistent Qualified Code(s): I48.11 - Longstanding persistent atrial fibrillation (4) Acute metabolic encephalopathy Code(s): G93.41 - METABOLIC ENCEPHALOPATHY Status: Acute (5) CAD (coronary artery disease) Code(s): I25.10 - ATHSCL HEART DISEASE OF [place] CORONARY ARTERY W/O ANG PCTRS Status: Chronic Qualifiers: Coronary Disease-Associated Artery/Lesion type: bypass graft [place] vs. transplanted heart: [place] heart Associated angina: without angina Qualified Code(s): I25.810 - Atherosclerosis of coronary artery bypass graft(s) without angina pectoris (6) Dementia Code(s): F03.90 - UNSPECIFIED DEMENTIA WITHOUT BEHAVIORAL DISTURBANCE Status: Chronic Qualifiers: Dementia type: Alzheimer's Alzheimer's disease onset: early-onset Dementia behavioral disturbance: with behavioral disturbance Qualified Code(s): G30.0 - Alzheimer's disease with early onset; F02.81 - Dementia in other diseases classified elsewhere with behavioral disturbance (7) Dyslipidemia Code(s): E78.5 - HYPERLIPIDEMIA, UNSPECIFIED Status: Chronic Plan Home Medications: Medication Instructions Recorded Confirmed Type Acetaminophen [Tylenol] 650 mg PO Q6H PRN 01/11/21 01/11/21 History Apixaban [Eliquis] 5 mg PO BID 01/11/21 01/11/21 History Aspirin 81 mg PO DAILY 01/11/21 01/11/21 History Diltiazem HCl [Cardizem] 30 mg PO TID 01/11/21 01/11/21 History Donepezil HCl [Aricept] 5 mg PO HS 01/11/21 01/11/21 History Pantoprazole [Protonix] 40 mg PO DAILY 01/11/21 01/11/21 History Simvastatin 20 mg PO HS 01/11/21 01/11/21 History Amlodipine [Norvasc] 5 mg PO BID tab 01/20/21 Rx Loratadine [Claritin] 10 mg PO DAILYPRN PRN tab 01/20/21 Rx Melatonin 3 mg PO HSPRN PRN tab 01/20/21 Rx Nebivolol HCl [Bystolic] 5 mg PO DAILY tab 01/20/21 Rx Polyethylene Glycol 3350 [Miralax] 17 gm PO DAILYPRN PRN pk 01/20/21 Rx Sennosides/Docusate Sodium 1 tab PO BID tab 01/20/21 Rx [Senokot S] risperiDONE [RisperDAL] 1 mg PO HS tab 01/20/21 Rx Allergies: hydralazine Allergy (Mild, Verified 01/14/21 19:11) Swollen Lips amoxicillin [From Augmentin] Allergy (Verified 01/12/21 11:59) cefdinir Allergy (Verified 01/12/21 11:59) ciprofloxacin Allergy (Verified 01/12/21 11:59) Allergies updated from [facility] 01/12 clavulanic acid [From Augmentin] Allergy (Verified 01/12/21 11:59) codeine Allergy (Verified 01/12/21 11:59) fentanyl Allergy (Verified 01/12/21 11:59) quetiapine [From Seroquel] Allergy (Verified 01/11/21 15:09) Sulfa (Sulfonamide Antibiotics) Allergy (Verified 01/11/21 15:09) Activity:: Activity as Tolerated Nourishment:: Heart Healthy Diet Referrals: [place] [facility] [Outside] (Patient to transfer to [facility] assisted living today) Kayode Avila MD [ Not on Staff] - 7 Days [facility]FFEN ESCOBEDO & [Primary Care Provider] - 7 Days (please call office for follow up appointment.) Disposition: CARE HOME/ASSISTED LIVING Quality CORE MEASURES:: N/A
--- NOTE | 2021-01-21 15:16 | EKG ---
Test Reason : Blood Pressure : / mmHG Vent. Rate : 067 BPM Atrial Rate : 048 BPM P-R Int : 000 ms QRS Dur : 086 ms QT Int : 392 ms P-R-T Axes : 000 104 -06 degrees QTc Int : 414 ms Atrial fibrillation with premature ventricular or aberrantly conducted complexes Lateral infarct , age undetermined Abnormal ECG Confirmed by MAHESH DELUCA M.D. ([id number]), editor newspaper TRACEY OSEI ([id number]) on 01/21/2021 3:15:56 PM Referred By: Confirmed By:MAHESH DELUCA M.D.
== END 2021-01-20 14:15 | DRG 308 ==
LOC: ERS 05:09 → ERHOLD 06:27 → 3SE 12:00 → OBSVTOIN 01-14 12:55 → 2NO 01-14 16:24
PROVIDERS: ADMIT Internal Medicine; ATTEND Internal Medicine
DX: I48.11 Longstanding persistent atrial fibrillation (principal); G93.41 Metabolic encephalopathy; N30.00 Acute cystitis without hematuria; I25.810 Atherosclerosis of coronary artery bypass graft(s) without angina pectoris; R44.3 Hallucinations, unspecified; F05 Delirium due to known physiological condition; I10 Essential (primary) hypertension; E78.5 Hyperlipidemia, unspecified; F32.9 Major depressive disorder, single episode, unspecified; K21.9 Gastro-esophageal reflux disease without esophagitis; M19.90 Unspecified osteoarthritis, unspecified site; I49.3 Ventricular premature depolarization; I49.5 Sick sinus syndrome; F41.9 Anxiety disorder, unspecified; F02.80 Dementia in other diseases classified elsewhere, unspecified severity, without behavioral disturbance, psychotic disturbance, mood disturbance, and anxiety; Z20.822 Contact with and (suspected) exposure to COVID-19; G30.0 Alzheimer's disease with early onset; Z95.1 Presence of aortocoronary bypass graft; Z88.2 Allergy status to sulfonamides; Z79.82 Long term (current) use of aspirin; I25.2 Old myocardial infarction; Z88.8 Allergy status to other drugs, medicaments and biological substances
CPT/HCPCS: 36415; 71045; 78452; 80048; 80053; 80061; 80162; 82553; 82565; 83735; 84484; 85014; 85018; 85025; 85049; 87635; 90471; 90662; 90732; 93005; 93010; 93017; 93306; 96374; 96375; A9500; C9113; G0008; G0009; G0378; J0360; J1200; J2060; J2405; J2785; J2930; S0028; U0003; U0005